=== PATIENT | male | born 1970 | race Caucasian/White ===

== ENCOUNTER 2020-10-22 14:33 | Inpatient (IN) | payer OTHER ==
[~2020-10-22] VITALS: Ht 177.8 cm; Wt 141.4 kg
[2020-10-22 14:34] VITALS: BP 157/102
[2020-10-22] MEDS ORDERED: ACETAMINOPHEN 500 MG TABLET ONE (15:09)
[2020-10-22 15:13] LABS: BASOPHILS % (AUTO) 0.3 % (0.0-5.0); EOSINOPHILS % (AUTO) 0.4 % (0.0-8.0); HEMATOCRIT 48.3 % (42-54); LYMPHOCYTES % (AUTO) 9.1 % (21.0-51.0); MEAN CORPUSCULAR HEMOGLOBIN 26.7 pg (27.0-33.0); MEAN CORPUSCULAR HGB CONC 32.7 g/dL (32.0-36.0); MEAN CORPUSCULAR VOLUME 81.7 fL (79-99); MONOCYTES % (AUTO) 6.8 % (3.0-13.0); NEUTROPHILS % (AUTO) 81.5 % (40.0-77.0); PLATELET COUNT (AUTO) 449 K/uL (130-400); RED BLOOD CELL COUNT(AUTO) 5.91 MIL/uL (4.50-6.20); RED CELL DISTRIBUTION WIDTH 12.5 % (11.0-15.5); WHITE BLOOD COUNT (AUTO) 21.3 K/uL (4.8-10.8)
[2020-10-22 15:22] LABS: APPEARANCE,URINE Clear (CLEAR); BILIRUBIN,URINE Negative (NEGATIVE); COLOR,URINE Yellow (YELLOW); GLUCOSE, URINE (UA) Negative (NEGATIVE); KETONES,URINE Negative (NEGATIVE); LEUKOCYTE ESTERASE ,URINE Negative (NEGATIVE); NITRATE,URINE Negative (NEGATIVE); OCCULT BLOOD,URINE Negative (NEGATIVE); PH,URINE 8.5 (5.0-8.0); PROTEIN,URINE POS 1+ mg/dL (NEGATIVE)
[2020-10-22 15:27] LABS: CREATININE 0.9 mg/dL (0.5-1.5); POTASSIUM 4.6 mmol/L (3.5-5.1)
[2020-10-22 15:28] LABS: INR 1.09 (0.85-1.15); PROTHROMBIN TIME 11.8 SEC (9.6-11.6)
[2020-10-22 15:30] LABS: PARTIAL THROMBOPLASTIN TIME 28.2 SEC (26.3-35.5)
[2020-10-22] MEDS ORDERED: 0.9%NACL 1000ML 1,000 ML IV ONE ×2 (15:30→16:00)
[2020-10-22] MEDS ORDERED: PIP/TAZ ZOSYN 3.375G 3.375 GM VIAL IVPB ONE (15:30)
[2020-10-22] MEDS ORDERED: VANCOMYCIN KIT 1 GM/250 ML IV.KIT IV ONE (15:30)
[2020-10-22] MEDS ORDERED: 0.9%NACL 50ML IV ONE (15:30)
[2020-10-22 15:32] LABS: BILIRUBIN,TOTAL 0.5 mg/dL (0.2-1.0); TOTAL PROTEIN, SERUM 8.2 g/dL (6.0-8.3)
[2020-10-22] MEDS ORDERED: ZOSYN 3.375GM+NS 50ML 50 ML IV ONE (15:35)
[2020-10-22 15:43] LABS: ALBUMIN 2.7 g/dL (3.5-5.0)
[2020-10-22] MEDS ORDERED: IOHEXOL-350 75 ML VIAL IV ONE (15:54)
[2020-10-22 16:05] LABS: BACTERIA,URINE Few /HPF (None Seen); MUCUS,URINE Few LPF (None Seen); SQUAMOUS EPITHELIAL CELL,UR Few /HPF (0-2)
[2020-10-22 17:52] VITALS: BP 158/88
[2020-10-22 19:17] VITALS: BP 168/103
[2020-10-22 19:28] LABS: HEMOGLOBIN A1C 8.2 % (4.0-6.0)
[2020-10-22 19:39] LABS: CRP QUANTITATIVE 301.8 mg/L (0.00-9.0)
[2020-10-22] MEDS ORDERED: 0.9%NACL 1000ML 1,000 ML IV SCH (20:00)
[2020-10-22] MEDS ORDERED: COMPOUND IV REFRIGERATED 1 EACH IVSOLN MISC PRN (20:00)
[2020-10-22] MEDS ORDERED: ACETAMINOPHEN 325 MG TAB PO PRN ×2 (20:00)
[2020-10-22] MEDS ORDERED: NITROGLYCERIN 0.4 MG SL TAB SL PRN (20:00)
[2020-10-22] MEDS ORDERED: DEXTROSE 50%-WATER 50 ML DISP.SYRIN IV PRN (20:00)
[2020-10-22] MEDS ORDERED: GLUCAGON 1MG KIT 1 MG ML IM PRN (20:00)
[2020-10-22] MEDS ORDERED: VANCOMYCIN PROTOCOL PER PHARMACY IV PRN (20:00)
[2020-10-22] MEDS ORDERED: ONDANSETRON 4MG INJ IV PRN (20:00)
[2020-10-22] MEDS: 0.9%NACL 1000ML 1,000 ML IV SCH (20:02)
[2020-10-22] MEDS: VANCOMYCIN 1.75GM/250ML NS IV SCH ×2 (20:02)
[2020-10-22] MEDS: FAMOTIDINE 20MG TAB PO SCH (20:20)
[2020-10-22] MEDS: HYDROCODONE/ACETAMINOPHEN 5/325 MG TAB PO PRN (20:20)
[2020-10-22] MEDS: INSULIN HUMULIN R 100 UNIT/ML 3ML SQ SCH (20:58)
[2020-10-22 22:31] VITALS: BP 141/86
[2020-10-22] MEDS ORDERED: 0.9%NACL 50ML 50 ML IV ONE (23:02)
[2020-10-22] MEDS: ZOSYN 3.375GM+NS 50ML 50 ML IV SCH (23:44)
[2020-10-23] VITALS (10 sets, daily range): BP systolic 132–161; BP diastolic 74–99
[2020-10-23 06:32] LABS: BASOPHILS % (AUTO) 0.4 % (0.0-5.0); EOSINOPHILS % (AUTO) 0.5 % (0.0-8.0); HEMATOCRIT 45.4 % (42-54); LYMPHOCYTES % (AUTO) 10.7 % (21.0-51.0); MEAN CORPUSCULAR HEMOGLOBIN 26.5 pg (27.0-33.0); MEAN CORPUSCULAR HGB CONC 31.9 g/dL (32.0-36.0); MONOCYTES % (AUTO) 7.5 % (3.0-13.0); NEUTROPHILS % (AUTO) 79.7 % (40.0-77.0); PLATELET COUNT (AUTO) 465 K/uL (130-400); RED BLOOD CELL COUNT(AUTO) 5.47 MIL/uL (4.50-6.20); RED CELL DISTRIBUTION WIDTH 12.7 % (11.0-15.5); WHITE BLOOD COUNT (AUTO) 19.8 K/uL (4.8-10.8)
[2020-10-23] MEDS: 0.9%NACL 1000ML 1,000 ML IV SCH ×2 (07:00→16:44)
[2020-10-23 07:06] LABS: ALBUMIN 2.5 g/dL (3.5-5.0); BILIRUBIN,TOTAL 0.5 mg/dL (0.2-1.0); CREATININE 0.9 mg/dL (0.5-1.5); MAGNESIUM 2.1 mg/dL (1.80-2.40); POTASSIUM 4.5 mmol/L (3.5-5.1); TOTAL PROTEIN, SERUM 7.8 g/dL (6.0-8.3)
[2020-10-23] MEDS: INSULIN HUMULIN R 100 UNIT/ML 3ML SQ SCH ×4 (07:30→22:21)
[2020-10-23 09:04] LABS: AMPHET/METH SCREEN,URINE NEGATIVE (NEGATIVE); BARBITURATE SCREEN, URINE NEGATIVE (NEGATIVE); BENZODIAZEPINES SCREEN,URINE POSITIVE (NEGATIVE); CANNABINOID SCREEN,URINE NEGATIVE (NEGATIVE); COCAINE SCREEN,URINE NEGATIVE (NEGATIVE); OPIATE SCREEN,URINE NEGATIVE (NEGATIVE); PHENCYCLIDINE SCREEN,URINE NEGATIVE (NEGATIVE)
[2020-10-23] MEDS: ZOSYN 3.375GM+NS 50ML 50 ML IV SCH (09:15)
[2020-10-23] MEDS: FAMOTIDINE 20MG TAB PO SCH ×2 (09:18→20:55)
[2020-10-23] MEDS: VANCOMYCIN 1.75GM/250ML NS IV SCH ×4 (10:46→20:55)
[2020-10-23] MEDS: HYDROCODONE/ACETAMINOPHEN 5/325 MG TAB PO PRN ×4 (10:53→21:00)
[2020-10-24] MEDS: 0.9%NACL 1000ML 1,000 ML IV SCH ×2 (01:05→12:00)
[2020-10-24] MEDS: HYDROCODONE/ACETAMINOPHEN 5/325 MG TAB PO PRN ×5 (01:12→23:13)
[2020-10-24 04:00] VITALS: BP 142/88
[2020-10-24] MEDS: INSULIN HUMULIN R 100 UNIT/ML 3ML SQ SCH ×4 (07:30→23:19)
[2020-10-24 08:00] VITALS: BP 158/98
[2020-10-24 08:02] LABS: BASOPHILS % (AUTO) 0.3 % (0.0-5.0); EOSINOPHILS % (AUTO) 1.1 % (0.0-8.0); HEMATOCRIT 45.4 % (42-54); LYMPHOCYTES % (AUTO) 14.1 % (21.0-51.0); MEAN CORPUSCULAR HEMOGLOBIN 26.7 pg (27.0-33.0); MEAN CORPUSCULAR HGB CONC 32.2 g/dL (32.0-36.0); MONOCYTES % (AUTO) 6.1 % (3.0-13.0); NEUTROPHILS % (AUTO) 77.4 % (40.0-77.0); PLATELET COUNT (AUTO) 461 K/uL (130-400); RED BLOOD CELL COUNT(AUTO) 5.47 MIL/uL (4.50-6.20); RED CELL DISTRIBUTION WIDTH 12.7 % (11.0-15.5); WHITE BLOOD COUNT (AUTO) 15.8 K/uL (4.8-10.8)
[2020-10-24 08:28] LABS: CREATININE 0.9 mg/dL (0.5-1.5); POTASSIUM 4.1 mmol/L (3.5-5.1)
[2020-10-24] MEDS: VANCOMYCIN 1.75GM/250ML NS IV SCH ×2 (09:54)
[2020-10-24] MEDS: FAMOTIDINE 20MG TAB PO SCH ×2 (09:54→20:50)
[2020-10-24 12:00] VITALS: BP 170/103
[2020-10-24 16:00] VITALS: BP 165/94
[2020-10-24] MEDS ORDERED: LABETALOL 20MG VIAL IV PRN (16:00)
[2020-10-24] MEDS ORDERED: AMLODIPINE 5 MG TAB PO ONE (16:00)
[2020-10-24 20:00] VITALS: BP 144/83
[2020-10-24] MEDS ORDERED: VANCOMYCIN 1G 2 GM in 0.9% NACL 500ML IV.SOLN 500 ML IV SCH (21:00)
[2020-10-25] VITALS (7 sets, daily range): BP systolic 133–174; BP diastolic 84–103
[2020-10-25] MEDS: HYDROCODONE/ACETAMINOPHEN 5/325 MG TAB PO PRN ×4 (03:11→21:03)
[2020-10-25 06:00] LABS: BASOPHILS % (AUTO) 0.5 % (0.0-5.0); EOSINOPHILS % (AUTO) 1.9 % (0.0-8.0); HEMATOCRIT 45.4 % (42-54); LYMPHOCYTES % (AUTO) 19.9 % (21.0-51.0); MEAN CORPUSCULAR HEMOGLOBIN 26.4 pg (27.0-33.0); MEAN CORPUSCULAR HGB CONC 31.9 g/dL (32.0-36.0); MEAN CORPUSCULAR VOLUME 82.5 fL (79-99); MONOCYTES % (AUTO) 6.4 % (3.0-13.0); NEUTROPHILS % (AUTO) 70.3 % (40.0-77.0); PLATELET COUNT (AUTO) 520 K/uL (130-400); RED CELL DISTRIBUTION WIDTH 12.5 % (11.0-15.5); WHITE BLOOD COUNT (AUTO) 12.5 K/uL (4.8-10.8)
[2020-10-25 06:07] LABS: CREATININE 0.9 mg/dL (0.5-1.5); POTASSIUM 4.5 mmol/L (3.5-5.1)
[2020-10-25] MEDS: INSULIN HUMULIN R 100 UNIT/ML 3ML SQ SCH ×4 (07:30→21:00)
[2020-10-25] MEDS: FAMOTIDINE 20MG TAB PO SCH ×2 (08:29→21:03)
[2020-10-25] MEDS: AMLODIPINE 5 MG TAB PO SCH (08:29)
[2020-10-25] MEDS ORDERED: CEFAZOLIN SODIUM 1 GM VIAL IVP SCH (09:30)
[2020-10-25] MEDS ORDERED: LACTULOSE 20 GM/30 ML UDCUP PO PRN (10:00)
[2020-10-25] MEDS: CEFAZOLIN SODIUM 1 GM VIAL IVP SCH ×2 (14:41→21:52)
[2020-10-26] MEDS: HYDROCODONE/ACETAMINOPHEN 5/325 MG TAB PO PRN ×4 (03:31→21:56)
[2020-10-26 03:52] VITALS: BP 151/89
[2020-10-26 05:56] LABS: BASOPHILS % (AUTO) 0.3 % (0.0-5.0); LYMPHOCYTES % (AUTO) 20.8 % (21.0-51.0); MEAN CORPUSCULAR HEMOGLOBIN 26.5 pg (27.0-33.0); MEAN CORPUSCULAR HGB CONC 31.8 g/dL (32.0-36.0); MEAN CORPUSCULAR VOLUME 83.2 fL (79-99); MONOCYTES % (AUTO) 6.1 % (3.0-13.0); NEUTROPHILS % (AUTO) 69.9 % (40.0-77.0); PLATELET COUNT (AUTO) 561 K/uL (130-400); RED BLOOD CELL COUNT(AUTO) 5.29 MIL/uL (4.50-6.20); RED CELL DISTRIBUTION WIDTH 12.4 % (11.0-15.5); WHITE BLOOD COUNT (AUTO) 11.8 K/uL (4.8-10.8)
[2020-10-26] MEDS: INSULIN HUMULIN R 100 UNIT/ML 3ML SQ SCH ×4 (06:09→20:28)
[2020-10-26 06:11] LABS: CREATININE 0.9 mg/dL (0.5-1.5)
[2020-10-26] MEDS: CEFAZOLIN SODIUM 1 GM VIAL IVP SCH ×3 (06:19→21:51)
[2020-10-26 07:32] VITALS: BP 135/97
[2020-10-26] MEDS: AMLODIPINE 5 MG TAB PO SCH (08:08)
[2020-10-26] MEDS: FAMOTIDINE 20MG TAB PO SCH ×2 (08:08→20:14)
[2020-10-26 11:00] VITALS: BP_SYST 143; BP_SYST 172; BP_DIAS 104; BP_DIAS 81
[2020-10-26 16:01] VITALS: BP 165/77
[2020-10-26 19:38] VITALS: BP 166/99
[2020-10-26 23:25] VITALS: BP 162/90
[2020-10-27] VITALS (7 sets, daily range): BP systolic 140–162; BP diastolic 83–99
[2020-10-27] MEDS: HYDROCODONE/ACETAMINOPHEN 5/325 MG TAB PO PRN ×4 (04:13→22:28)
[2020-10-27] MEDS: CEFAZOLIN SODIUM 1 GM VIAL IVP SCH ×3 (06:00→22:27)
[2020-10-27] MEDS: INSULIN HUMULIN R 100 UNIT/ML 3ML SQ SCH ×4 (06:01→19:54)
[2020-10-27] MEDS: FAMOTIDINE 20MG TAB PO SCH ×2 (08:53→20:25)
[2020-10-27] MEDS: AMLODIPINE 5 MG TAB PO SCH (08:53)
[2020-10-27] MEDS ORDERED: IOHEXOL-350 50ML VIAL IV ONE (12:16)
[2020-10-27] MEDS: TRAMADOL HCL 50 MG TABLET PO PRN (20:25)
[2020-10-28 03:30] VITALS: BP 153/97
[2020-10-28] MEDS: HYDROCODONE/ACETAMINOPHEN 5/325 MG TAB PO PRN ×3 (04:35→17:47)
[2020-10-28 05:54] LABS: BASOPHILS % (AUTO) 0.5 % (0.0-5.0); EOSINOPHILS % (AUTO) 1.9 % (0.0-8.0); HEMATOCRIT 49.1 % (42-54); LYMPHOCYTES % (AUTO) 22.6 % (21.0-51.0); MEAN CORPUSCULAR HEMOGLOBIN 26.3 pg (27.0-33.0); MEAN CORPUSCULAR HGB CONC 31.6 g/dL (32.0-36.0); MEAN CORPUSCULAR VOLUME 83.2 fL (79-99); MONOCYTES % (AUTO) 5.9 % (3.0-13.0); NEUTROPHILS % (AUTO) 68.5 % (40.0-77.0); RED CELL DISTRIBUTION WIDTH 12.4 % (11.0-15.5)
[2020-10-28] MEDS: CEFAZOLIN SODIUM 1 GM VIAL IVP SCH ×3 (05:59→20:25)
[2020-10-28] MEDS: INSULIN HUMULIN R 100 UNIT/ML 3ML SQ SCH ×4 (05:59→21:00)
[2020-10-28 06:08] LABS: PLATELET COUNT (AUTO) 703 K/uL (130-400)
[2020-10-28 06:09] LABS: CREATININE 0.9 mg/dL (0.5-1.5); POTASSIUM 4.6 mmol/L (3.5-5.1)
[2020-10-28 08:00] VITALS: BP 152/81
[2020-10-28] MEDS: ENOXAPARIN SODIUM 30 MG/0.3 ML SQ SCH (09:27)
[2020-10-28] MEDS: FAMOTIDINE 20MG TAB PO SCH ×2 (09:27→20:29)
[2020-10-28] MEDS: AMLODIPINE 5 MG TAB PO SCH (09:27)
[2020-10-28] MEDS: TRAMADOL HCL 50 MG TABLET PO PRN ×2 (09:28→20:30)
[2020-10-28 12:00] VITALS: BP 152/86
[2020-10-28 16:00] VITALS: BP 147/93
[2020-10-28] MEDS ORDERED: IOHEXOL-350 75 ML VIAL IV ONE (16:40)
[2020-10-28 20:00] VITALS: BP 156/85
[2020-10-28 23:12] VITALS: BP 167/94
[2020-10-29] MEDS: HYDROCODONE/ACETAMINOPHEN 5/325 MG TAB PO PRN ×4 (00:05→18:05)
[2020-10-29 04:00] VITALS: BP 143/90
[2020-10-29] MEDS: INSULIN HUMULIN R 100 UNIT/ML 3ML SQ SCH ×4 (05:26→21:00)
[2020-10-29] MEDS: CEFAZOLIN SODIUM 1 GM VIAL IVP SCH ×3 (05:26→20:16)
[2020-10-29 08:00] VITALS: BP 128/82
[2020-10-29] MEDS: FAMOTIDINE 20MG TAB PO SCH ×2 (09:06→20:16)
[2020-10-29] MEDS: AMLODIPINE 5 MG TAB PO SCH (09:06)
[2020-10-29] MEDS: ENOXAPARIN SODIUM 30 MG/0.3 ML SQ SCH (09:11)
[2020-10-29 12:00] VITALS: BP 142/82
[2020-10-29 16:00] VITALS: BP 148/88
[2020-10-29 20:07] VITALS: BP 151/85
[2020-10-29] MEDS: TRAMADOL HCL 50 MG TABLET PO PRN (20:16)
[2020-10-30] MEDS: HYDROCODONE/ACETAMINOPHEN 5/325 MG TAB PO PRN ×4 (00:05→18:39)
[2020-10-30 00:15] VITALS: BP 148/89
[2020-10-30 04:09] VITALS: BP 144/90
[2020-10-30 04:40] LABS: BASOPHILS % (AUTO) 0.6 % (0.0-5.0); EOSINOPHILS % (AUTO) 2.8 % (0.0-8.0); HEMATOCRIT 46.6 % (42-54); LYMPHOCYTES % (AUTO) 29.4 % (21.0-51.0); MEAN CORPUSCULAR HEMOGLOBIN 26.7 pg (27.0-33.0); MEAN CORPUSCULAR HGB CONC 31.5 g/dL (32.0-36.0); MEAN CORPUSCULAR VOLUME 84.6 fL (79-99); MONOCYTES % (AUTO) 7.9 % (3.0-13.0); NEUTROPHILS % (AUTO) 58.7 % (40.0-77.0); PLATELET COUNT (AUTO) 665 K/uL (130-400); RED BLOOD CELL COUNT(AUTO) 5.51 MIL/uL (4.50-6.20); RED CELL DISTRIBUTION WIDTH 12.6 % (11.0-15.5); WHITE BLOOD COUNT (AUTO) 9.5 K/uL (4.8-10.8)
[2020-10-30 05:01] LABS: CREATININE 0.9 mg/dL (0.5-1.5); POTASSIUM 4.3 mmol/L (3.5-5.1)
[2020-10-30] MEDS: CEFAZOLIN SODIUM 1 GM VIAL IVP SCH ×3 (05:17→20:01)
[2020-10-30] MEDS: INSULIN HUMULIN R 100 UNIT/ML 3ML SQ SCH ×4 (07:30→21:00)
[2020-10-30 08:00] VITALS: BP 127/67
[2020-10-30 12:00] VITALS: BP 133/90
[2020-10-30] MEDS: ENOXAPARIN SODIUM 30 MG/0.3 ML SQ SCH (12:19)
[2020-10-30] MEDS: FAMOTIDINE 20MG TAB PO SCH ×2 (12:19→20:00)
[2020-10-30] MEDS: AMLODIPINE 5 MG TAB PO SCH (12:19)
[2020-10-30 16:00] VITALS: BP 139/79
[2020-10-30 20:00] VITALS: BP 136/85
[2020-10-30] MEDS: TRAMADOL HCL 50 MG TABLET PO PRN (20:01)
[2020-10-31] VITALS: BP 146/87
[2020-10-31] MEDS: HYDROCODONE/ACETAMINOPHEN 5/325 MG TAB PO PRN ×4 (00:37→20:08)
[2020-10-31 04:00] VITALS: BP 147/98
[2020-10-31 04:54] LABS: BASOPHILS % (AUTO) 0.8 % (0.0-5.0); EOSINOPHILS % (AUTO) 2.5 % (0.0-8.0); MEAN CORPUSCULAR HEMOGLOBIN 26.5 pg (27.0-33.0); MEAN CORPUSCULAR HGB CONC 31.3 g/dL (32.0-36.0); MEAN CORPUSCULAR VOLUME 84.7 fL (79-99); MONOCYTES % (AUTO) 7.4 % (3.0-13.0); NEUTROPHILS % (AUTO) 55.9 % (40.0-77.0); PLATELET COUNT (AUTO) 650 K/uL (130-400); RED BLOOD CELL COUNT(AUTO) 5.55 MIL/uL (4.50-6.20); RED CELL DISTRIBUTION WIDTH 12.5 % (11.0-15.5); WHITE BLOOD COUNT (AUTO) 9.2 K/uL (4.8-10.8)
[2020-10-31 05:06] LABS: CREATININE 0.9 mg/dL (0.5-1.5); CRP QUANTITATIVE 40.4 mg/L (0.00-9.0); POTASSIUM 4.3 mmol/L (3.5-5.1)
[2020-10-31] MEDS: CEFAZOLIN SODIUM 1 GM VIAL IVP SCH ×3 (06:22→22:02)
[2020-10-31] MEDS: INSULIN HUMULIN R 100 UNIT/ML 3ML SQ SCH ×4 (06:23→20:08)
[2020-10-31 08:00] VITALS: BP 138/91
[2020-10-31] MEDS: FAMOTIDINE 20MG TAB PO SCH ×2 (09:57→20:07)
[2020-10-31] MEDS: AMLODIPINE 5 MG TAB PO SCH (09:57)
[2020-10-31] MEDS: ENOXAPARIN SODIUM 30 MG/0.3 ML SQ SCH (09:57)
[2020-10-31 11:49] VITALS: BP 141/85
[2020-10-31 16:00] VITALS: BP 161/106
[2020-10-31] MEDS: TRAMADOL HCL 50 MG TABLET PO PRN (17:26)
[2020-10-31 19:38] VITALS: BP 137/85
[2020-11-01] VITALS (27 sets, daily range): BP systolic 110–176; BP diastolic 70–105
[2020-11-01] MEDS: HYDROCODONE/ACETAMINOPHEN 5/325 MG TAB PO PRN ×3 (02:03→19:40)
[2020-11-01 05:00] LABS: BASOPHILS % (AUTO) 0.6 % (0.0-5.0); EOSINOPHILS % (AUTO) 2.7 % (0.0-8.0); HEMATOCRIT 45.9 % (42-54); LYMPHOCYTES % (AUTO) 27.4 % (21.0-51.0); MEAN CORPUSCULAR HEMOGLOBIN 26.3 pg (27.0-33.0); MEAN CORPUSCULAR HGB CONC 30.9 g/dL (32.0-36.0); MEAN CORPUSCULAR VOLUME 85.2 fL (79-99); MONOCYTES % (AUTO) 7.5 % (3.0-13.0); NEUTROPHILS % (AUTO) 61.4 % (40.0-77.0); PLATELET COUNT (AUTO) 585 K/uL (130-400); RED BLOOD CELL COUNT(AUTO) 5.39 MIL/uL (4.50-6.20); RED CELL DISTRIBUTION WIDTH 12.6 % (11.0-15.5)
[2020-11-01 05:06] LABS: CREATININE 0.8 mg/dL (0.5-1.5); CRP QUANTITATIVE 43.8 mg/L (0.00-9.0); POTASSIUM 4.3 mmol/L (3.5-5.1)
[2020-11-01] MEDS: CEFAZOLIN SODIUM 1 GM VIAL IVP SCH ×3 (05:37→20:45)
[2020-11-01] MEDS: INSULIN HUMULIN R 100 UNIT/ML 3ML SQ SCH ×4 (05:47→20:41)
[2020-11-01] MEDS: FAMOTIDINE 20MG TAB PO SCH ×2 (08:40→19:39)
[2020-11-01] MEDS: AMLODIPINE 5 MG TAB PO SCH (08:40)
[2020-11-01] MEDS: ENOXAPARIN SODIUM 30 MG/0.3 ML SQ SCH (08:41)
[2020-11-01] MEDS ORDERED: LACTATED RINGERS 1000ML 1,000 ML IV ONE (11:36)
[2020-11-01] MEDS ORDERED: MEPERIDINE-PF 25 MG/ML SYG ONE ×2 (13:22→15:13)
[2020-11-01] MEDS ORDERED: MIDAZOLAM HCL 1 MG/ML 2ML VIAL ONE (13:33)
[2020-11-01] MEDS ORDERED: LIDOCAINE PF 100MG/5ML (2%) SYRINGE 5ML ONE (13:33)
[2020-11-01] MEDS ORDERED: GLYCOPYRROLATE 1 MG/5 ML SYRINGE ONE (13:33)
[2020-11-01] MEDS ORDERED: DEXAMETHASONE SOD PHOSPHATE 10MG/ML 1ML VIAL ONE (13:33)
[2020-11-01] MEDS ORDERED: PROPOFOL 10 MG/ML 20ML VIAL IV ONE (13:33)
[2020-11-01] MEDS ORDERED: SUCCINYLCHOLINE CHLORIDE 20 MG/ML 10 ML VIAL ONE (13:33)
[2020-11-01] MEDS ORDERED: ROCURONIUM 10MG/1ML SYR 10 MG/ML ML ONE (13:33)
[2020-11-01] MEDS ORDERED: NEOSTIGMINE 5MG/5ML SYR IV ONE (13:33)
[2020-11-01] MEDS ORDERED: FENTANYL CITRATE PF 50 MCG/1 ML 2ML VIAL ONE (13:34)
[2020-11-02] MEDS: HYDROCODONE/ACETAMINOPHEN 5/325 MG TAB PO PRN ×4 (02:10→21:18)
[2020-11-02 04:14] VITALS: BP 144/77
[2020-11-02 05:47] LABS: BASOPHILS % (AUTO) 0.1 % (0.0-5.0); EOSINOPHILS % (AUTO) 0.1 % (0.0-8.0); HEMATOCRIT 43.2 % (42-54); LYMPHOCYTES % (AUTO) 16.6 % (21.0-51.0); MEAN CORPUSCULAR HEMOGLOBIN 26.4 pg (27.0-33.0); MEAN CORPUSCULAR HGB CONC 31.9 g/dL (32.0-36.0); MEAN CORPUSCULAR VOLUME 82.8 fL (79-99); MONOCYTES % (AUTO) 5.2 % (3.0-13.0); NEUTROPHILS % (AUTO) 77.6 % (40.0-77.0); PLATELET COUNT (AUTO) 609 K/uL (130-400); RED BLOOD CELL COUNT(AUTO) 5.22 MIL/uL (4.50-6.20); RED CELL DISTRIBUTION WIDTH 12.4 % (11.0-15.5); WHITE BLOOD COUNT (AUTO) 13.4 K/uL (4.8-10.8)
[2020-11-02] MEDS: CEFAZOLIN SODIUM 1 GM VIAL IVP SCH ×3 (05:58→21:58)
[2020-11-02 06:00] LABS: CREATININE 0.9 mg/dL (0.5-1.5); CRP QUANTITATIVE 48.2 mg/L (0.00-9.0)
[2020-11-02] MEDS: INSULIN HUMULIN R 100 UNIT/ML 3ML SQ SCH ×4 (06:23→19:56)
[2020-11-02 08:00] VITALS: BP 156/98
[2020-11-02] MEDS: FAMOTIDINE 20MG TAB PO SCH ×2 (09:00→19:57)
[2020-11-02] MEDS: AMLODIPINE 5 MG TAB PO SCH (09:00)
[2020-11-02] MEDS: ENOXAPARIN SODIUM 30 MG/0.3 ML SQ SCH (09:01)
[2020-11-02] MEDS ORDERED: IOHEXOL 350 MG/ML 100ML INFUS..BTL IV ONE (11:30)
[2020-11-02 11:36] VITALS: BP 135/76
[2020-11-02 16:00] VITALS: BP 124/90
[2020-11-02] MEDS: TRAMADOL HCL 50 MG TABLET PO PRN (18:32)
[2020-11-02 20:00] VITALS: BP 140/77
[2020-11-02 23:20] VITALS: BP 125/68
[2020-11-03] MEDS: HYDROCODONE/ACETAMINOPHEN 5/325 MG TAB PO PRN ×4 (03:21→21:54)
[2020-11-03 03:28] VITALS: BP 136/79
[2020-11-03] MEDS: CEFAZOLIN SODIUM 1 GM VIAL IVP SCH ×3 (05:30→21:04)
[2020-11-03] MEDS: INSULIN HUMULIN R 100 UNIT/ML 3ML SQ SCH ×4 (05:52→21:00)
[2020-11-03 08:08] VITALS: BP 138/82
[2020-11-03] MEDS: TRAMADOL HCL 50 MG TABLET PO PRN (08:19)
[2020-11-03] MEDS: AMLODIPINE 5 MG TAB PO SCH (08:19)
[2020-11-03] MEDS: ENOXAPARIN SODIUM 30 MG/0.3 ML SQ SCH (08:20)
[2020-11-03] MEDS: FAMOTIDINE 20MG TAB PO SCH ×2 (08:20→21:04)
[2020-11-03 11:06] VITALS: BP 145/84
[2020-11-03 17:03] VITALS: BP 175/100
[2020-11-03 20:00] VITALS: BP 145/78
[2020-11-04] VITALS: BP 138/90
[2020-11-04] MEDS: HYDROCODONE/ACETAMINOPHEN 5/325 MG TAB PO PRN ×4 (03:57→22:17)
[2020-11-04 04:00] VITALS: BP 154/97
[2020-11-04] MEDS: INSULIN HUMULIN R 100 UNIT/ML 3ML SQ SCH ×4 (06:06→21:00)
[2020-11-04] MEDS: CEFAZOLIN SODIUM 1 GM VIAL IVP SCH ×3 (06:07→22:17)
[2020-11-04 07:38] VITALS: BP 142/87
[2020-11-04] MEDS: TRAMADOL HCL 50 MG TABLET PO PRN (08:21)
[2020-11-04] MEDS: FAMOTIDINE 20MG TAB PO SCH ×2 (10:04→20:59)
[2020-11-04] MEDS: ENOXAPARIN SODIUM 30 MG/0.3 ML SQ SCH (10:04)
[2020-11-04] MEDS: AMLODIPINE 5 MG TAB PO SCH (10:04)
[2020-11-04 16:00] VITALS: BP 154/92
[2020-11-04 20:00] VITALS: BP 157/102
[2020-11-05] VITALS (7 sets, daily range): BP systolic 140–174; BP diastolic 85–108
[2020-11-05] MEDS: HYDROCODONE/ACETAMINOPHEN 5/325 MG TAB PO PRN ×5 (04:20→22:49)
[2020-11-05] MEDS: CEFAZOLIN SODIUM 1 GM VIAL IVP SCH ×3 (05:33→22:07)
[2020-11-05] MEDS: INSULIN HUMULIN R 100 UNIT/ML 3ML SQ SCH ×4 (06:39→21:00)
[2020-11-05] MEDS: TRAMADOL HCL 50 MG TABLET PO PRN ×2 (06:54→15:10)
[2020-11-05] MEDS: ENOXAPARIN SODIUM 30 MG/0.3 ML SQ SCH (09:10)
[2020-11-05] MEDS: AMLODIPINE 5 MG TAB PO SCH (09:10)
[2020-11-05] MEDS: FAMOTIDINE 20MG TAB PO SCH ×2 (09:10→20:27)
[2020-11-06] VITALS: BP 148/86
[2020-11-06 04:00] VITALS: BP 153/85
[2020-11-06] MEDS: HYDROCODONE/ACETAMINOPHEN 5/325 MG TAB PO PRN ×4 (05:21→23:59)
[2020-11-06] MEDS: CEFAZOLIN SODIUM 1 GM VIAL IVP SCH ×3 (05:21→21:05)
[2020-11-06] MEDS: INSULIN HUMULIN R 100 UNIT/ML 3ML SQ SCH ×4 (06:03→20:55)
[2020-11-06 07:30] VITALS: BP 144/102
[2020-11-06] MEDS: AMLODIPINE 5 MG TAB PO SCH (09:44)
[2020-11-06] MEDS: FAMOTIDINE 20MG TAB PO SCH ×2 (09:44→21:04)
[2020-11-06] MEDS: ENOXAPARIN SODIUM 30 MG/0.3 ML SQ SCH (09:45)
[2020-11-06 11:00] VITALS: BP_SYST 108; BP_SYST 137; BP_DIAS 72; BP_DIAS 83
[2020-11-06] MEDS ORDERED: LISINOPRIL 10 MG TABLET PO SCH (13:00)
[2020-11-06 16:00] VITALS: BP 156/102
[2020-11-06 17:24] LABS: BASOPHILS % (AUTO) 0.6 % (0.0-5.0); EOSINOPHILS % (AUTO) 5.1 % (0.0-8.0); HEMATOCRIT 43.9 % (42-54); LYMPHOCYTES % (AUTO) 33.6 % (21.0-51.0); MEAN CORPUSCULAR HEMOGLOBIN 26.6 pg (27.0-33.0); MEAN CORPUSCULAR HGB CONC 32.1 g/dL (32.0-36.0); MEAN CORPUSCULAR VOLUME 82.8 fL (79-99); MONOCYTES % (AUTO) 7.9 % (3.0-13.0); NEUTROPHILS % (AUTO) 52.6 % (40.0-77.0); PLATELET COUNT (AUTO) 468 K/uL (130-400); RED CELL DISTRIBUTION WIDTH 12.3 % (11.0-15.5); WHITE BLOOD COUNT (AUTO) 8.3 K/uL (4.8-10.8)
[2020-11-06 17:33] LABS: CREATININE 0.8 mg/dL (0.5-1.5); POTASSIUM 4.3 mmol/L (3.5-5.1)
[2020-11-06 17:37] LABS: ALBUMIN 3.1 g/dL (3.5-5.0); BILIRUBIN,TOTAL 0.3 mg/dL (0.2-1.0); CRP QUANTITATIVE 32.5 mg/L (0.00-9.0)
[2020-11-06] MEDS: METFORMIN HCL 500 MG TAB.SR.24H PO SCH (17:50)
[2020-11-06 18:27] LABS: ERYTHROCYTE SEDIMENTATION RATE 30 MM/HR (0-20)
[2020-11-06 20:00] VITALS: BP 151/97
[2020-11-06] MEDS: TRAMADOL HCL 50 MG TABLET PO PRN (21:05)
[2020-11-07] VITALS: BP 136/84
[2020-11-07 04:00] VITALS: BP 132/82
[2020-11-07] MEDS: CEFAZOLIN SODIUM 1 GM VIAL IVP SCH ×3 (05:14→22:27)
[2020-11-07] MEDS: TRAMADOL HCL 50 MG TABLET PO PRN ×2 (05:15→16:17)
[2020-11-07 05:24] LABS: BASOPHILS % (AUTO) 0.6 % (0.0-5.0); EOSINOPHILS % (AUTO) 4.5 % (0.0-8.0); HEMATOCRIT 45.6 % (42-54); LYMPHOCYTES % (AUTO) 35.5 % (21.0-51.0); MEAN CORPUSCULAR HEMOGLOBIN 26.1 pg (27.0-33.0); MEAN CORPUSCULAR HGB CONC 31.1 g/dL (32.0-36.0); MEAN CORPUSCULAR VOLUME 83.8 fL (79-99); MONOCYTES % (AUTO) 8.2 % (3.0-13.0); NEUTROPHILS % (AUTO) 50.8 % (40.0-77.0); PLATELET COUNT (AUTO) 473 K/uL (130-400); RED BLOOD CELL COUNT(AUTO) 5.44 MIL/uL (4.50-6.20); RED CELL DISTRIBUTION WIDTH 12.6 % (11.0-15.5); WHITE BLOOD COUNT (AUTO) 8.3 K/uL (4.8-10.8)
[2020-11-07] MEDS: INSULIN HUMULIN R 100 UNIT/ML 3ML SQ SCH ×4 (05:33→20:34)
[2020-11-07 05:39] LABS: ALBUMIN 3.2 g/dL (3.5-5.0); BILIRUBIN,TOTAL 0.4 mg/dL (0.2-1.0); CREATININE 0.9 mg/dL (0.5-1.5); CRP QUANTITATIVE 31.9 mg/L (0.00-9.0)
[2020-11-07] MEDS: HYDROCODONE/ACETAMINOPHEN 5/325 MG TAB PO PRN ×3 (06:12→18:19)
[2020-11-07 06:35] LABS: ERYTHROCYTE SEDIMENTATION RATE 38 MM/HR (0-20)
[2020-11-07 07:30] VITALS: BP 125/76
[2020-11-07] MEDS: FAMOTIDINE 20MG TAB PO SCH ×2 (08:39→20:39)
[2020-11-07] MEDS: METFORMIN HCL 500 MG TAB.SR.24H PO SCH ×2 (08:39→16:16)
[2020-11-07] MEDS: AMLODIPINE 5 MG TAB PO SCH (08:39)
[2020-11-07] MEDS: LISINOPRIL 10 MG TABLET PO SCH (08:40)
[2020-11-07] MEDS: ENOXAPARIN SODIUM 30 MG/0.3 ML SQ SCH (08:42)
[2020-11-07 11:13] VITALS: BP 133/79
[2020-11-07 16:00] VITALS: BP 148/85
[2020-11-07 20:00] VITALS: BP 131/71
[2020-11-08] VITALS: BP 130/80
[2020-11-08] MEDS: HYDROCODONE/ACETAMINOPHEN 5/325 MG TAB PO PRN ×4 (00:11→18:39)
[2020-11-08 04:00] VITALS: BP 121/72
[2020-11-08] MEDS: INSULIN HUMULIN R 100 UNIT/ML 3ML SQ SCH ×4 (05:21→21:00)
[2020-11-08] MEDS: TRAMADOL HCL 50 MG TABLET PO PRN ×2 (05:40→22:13)
[2020-11-08] MEDS: CEFAZOLIN SODIUM 1 GM VIAL IVP SCH ×2 (05:41→14:13)
[2020-11-08 07:30] VITALS: BP 135/87
[2020-11-08] MEDS: METFORMIN HCL 500 MG TAB.SR.24H PO SCH ×3 (10:29→17:40)
[2020-11-08] MEDS: AMLODIPINE 5 MG TAB PO SCH (10:29)
[2020-11-08] MEDS: FAMOTIDINE 20MG TAB PO SCH ×2 (10:29→19:59)
[2020-11-08] MEDS: ENOXAPARIN SODIUM 30 MG/0.3 ML SQ SCH (10:30)
[2020-11-08] MEDS: LISINOPRIL 10 MG TABLET PO SCH (10:30)
[2020-11-08 11:00] VITALS: BP 144/91
[2020-11-08 16:00] VITALS: BP 140/91
[2020-11-08 20:07] VITALS: BP 138/60
[2020-11-09] VITALS (7 sets, daily range): BP systolic 120–142; BP diastolic 70–95
[2020-11-09] MEDS: HYDROCODONE/ACETAMINOPHEN 5/325 MG TAB PO PRN ×4 (00:05→18:20)
[2020-11-09] MEDS: INSULIN HUMULIN R 100 UNIT/ML 3ML SQ SCH ×2 (05:36→21:00)
[2020-11-09] MEDS: CEFAZOLIN SODIUM 1 GM VIAL IVP SCH ×2 (09:05→16:47)
[2020-11-09] MEDS: AMLODIPINE 5 MG TAB PO SCH (09:05)
[2020-11-09] MEDS: FAMOTIDINE 20MG TAB PO SCH ×2 (09:05→21:41)
[2020-11-09] MEDS: LISINOPRIL 10 MG TABLET PO SCH (09:06)
[2020-11-09] MEDS: ENOXAPARIN SODIUM 30 MG/0.3 ML SQ SCH (09:06)
[2020-11-09] MEDS: TRAMADOL HCL 50 MG TABLET PO PRN ×2 (09:10→21:45)
[2020-11-09] MEDS: METFORMIN HCL 500 MG TAB.SR.24H PO SCH (16:48)
[2020-11-10] MEDS: CEFAZOLIN SODIUM 1 GM VIAL IVP SCH ×3 (00:41→15:18)
[2020-11-10] MEDS: HYDROCODONE/ACETAMINOPHEN 5/325 MG TAB PO PRN ×3 (00:42→12:13)
[2020-11-10 04:01] VITALS: BP 117/75
[2020-11-10] MEDS: INSULIN HUMULIN R 100 UNIT/ML 3ML SQ SCH ×2 (06:32→11:30)
[2020-11-10 08:00] VITALS: BP 151/85
[2020-11-10] MEDS: METFORMIN HCL 500 MG TAB.SR.24H PO SCH (08:00)
[2020-11-10] MEDS: AMLODIPINE 5 MG TAB PO SCH (09:05)
[2020-11-10] MEDS: LISINOPRIL 10 MG TABLET PO SCH (09:05)
[2020-11-10] MEDS: FAMOTIDINE 20MG TAB PO SCH (09:05)
[2020-11-10] MEDS: ENOXAPARIN SODIUM 30 MG/0.3 ML SQ SCH (09:06)
[2020-11-10] MEDS ORDERED: AMLO-258 PO (09:22)
[2020-11-10] MEDS ORDERED: LISI10TA24 PO (09:22)
[2020-11-10] MEDS ORDERED: METF-444 PO (09:22)
[2020-11-10 12:00] VITALS: BP 123/73
== END 2020-11-10 16:00 | disposition home or self-care (01) | DRG 872 ==
LOC: EDH 14:33 → EDHIP 18:49 → 3CH 10-23 22:41
PROVIDERS: ADMIT Internal Medicine; ATTEND Internal Medicine
PROC: 0W980ZZ Drainage of Chest Wall, Open Approach (ICD-10-PCS; 2020-10-23)
PROC: 0JJS3ZZ Inspection of Head and Neck Subcutaneous Tissue and Fascia, Percutaneous Approach (ICD-10-PCS; 2020-10-27)
PROC: 0W980ZZ Drainage of Chest Wall, Open Approach (ICD-10-PCS; principal; 2020-11-01 13:45)
DX: A41.01 Sepsis due to Methicillin susceptible Staphylococcus aureus (principal); M60.009 Infective myositis, unspecified site; E87.1 Hypo-osmolality and hyponatremia; Z68.42 Body mass index [BMI] 45.0-49.9, adult; L03.313 Cellulitis of chest wall; L02.213 Cutaneous abscess of chest wall; J98.11 Atelectasis; E66.01 Morbid (severe) obesity due to excess calories; E11.9 Type 2 diabetes mellitus without complications; I10 Essential (primary) hypertension; Z20.822 Contact with and (suspected) exposure to COVID-19; M47.815 Spondylosis without myelopathy or radiculopathy, thoracolumbar region; Z83.3 Family history of diabetes mellitus
CPT/HCPCS: 10005; 10030; 36415; 71250; 71260; 71275; 76604; 76942; 80048; 80053; 80061; 80202; 80305; 81001; 82948; 83036; 83605; 83735; 84145; 85025; 85610; 85651; 85730; 86140; 87040; 87070; 87071; 87076; 87077; 87088; 87186; 87205; 87635; 87641; 93005; 93306; 93356; 93970; C1729; C9803; G0378; J0330; J0690; J1100; J1650; J1815; J2001; J2175; J2250; J2543; J2704; J2710; J3010; J3370; J3490; J7030; J7040; J7050; J7120; Q9967

== ENCOUNTER → 2020-11-20 | Outpatient (CLI) | payer SELFPAY ==
[~2020-11-20] MED LIST: AMLO-258 PO; LIDOCAINE HCL 4% LTA SOL 4 ML VIAL TP ONE; LISI10TA24 PO; METF-444 PO
== END | disposition home or self-care (01) ==
LOC: WHH 10:59
PROVIDERS: ATTEND Family Medicine
DX: S21.101A Unspecified open wound of right front wall of thorax without penetration into thoracic cavity, initial encounter (principal); E11.628 Type 2 diabetes mellitus with other skin complications; I10 Essential (primary) hypertension; E66.01 Morbid (severe) obesity due to excess calories; Z68.42 Body mass index [BMI] 45.0-49.9, adult; X58.XXXA Exposure to other specified factors, initial encounter; Y93.89 Activity, other specified; Y92.89 Other specified places as the place of occurrence of the external cause; Y99.8 Other external cause status
CPT/HCPCS: 11042; A4450; A6207

== ENCOUNTER → 2020-11-27 | Outpatient (CLI) | payer SELFPAY ==
[~2020-11-27] MED LIST changes: +SILVER NITRATE APPLICATOR 1 SWAB TP ONE
== END | disposition home or self-care (01) ==
LOC: WHH 11:26
PROVIDERS: ATTEND Family Medicine
DX: S21.101D Unspecified open wound of right front wall of thorax without penetration into thoracic cavity, subsequent encounter (principal); E11.628 Type 2 diabetes mellitus with other skin complications; I10 Essential (primary) hypertension; E66.01 Morbid (severe) obesity due to excess calories; Z68.42 Body mass index [BMI] 45.0-49.9, adult; X58.XXXD Exposure to other specified factors, subsequent encounter
CPT/HCPCS: 11042; A6022

== ENCOUNTER → 2020-12-04 | Outpatient (CLI) | payer SELFPAY ==
[~2020-12-04] MED LIST changes: -SILVER NITRATE APPLICATOR 1 SWAB TP ONE
== END | disposition home or self-care (01) ==
LOC: WHH 10:52
PROVIDERS: ATTEND Family Medicine
DX: S21.101D Unspecified open wound of right front wall of thorax without penetration into thoracic cavity, subsequent encounter (principal); E11.628 Type 2 diabetes mellitus with other skin complications; I10 Essential (primary) hypertension; E66.01 Morbid (severe) obesity due to excess calories; Z68.42 Body mass index [BMI] 45.0-49.9, adult; X58.XXXD Exposure to other specified factors, subsequent encounter
CPT/HCPCS: 17250